=== PATIENT | male | born 1965 | race Caucasian/White ===

== ENCOUNTER 2017-10-22 10:10 | Outpatient (CLI) | payer BC | END 2017-10-22 10:11 | disposition home or self-care (01) | LOC: BICRAD 10:10 | PROVIDERS: ATTEND Family Medicine | DX: Z00.00 Encounter for general adult medical examination without abnormal findings (principal) | CPT/HCPCS: 71046 ==

== ENCOUNTER 2019-09-02 20:30 | Outpatient (CLI) | payer BC | END 2019-09-02 20:31 | disposition home or self-care (01) | LOC: SLEEPLAB 20:30 | PROVIDERS: ATTEND Internal Medicine Pulmonary Disease | DX: G47.33 Obstructive sleep apnea (adult) (pediatric) (principal); R53.83 Other fatigue; R40.0 Somnolence; R06.83 Snoring; E66.9 Obesity, unspecified; Z68.38 Body mass index [BMI] 38.0-38.9, adult | CPT/HCPCS: 95811 ==

== ENCOUNTER 2025-02-03 08:41 | Outpatient (CLI) | payer BC | END 2025-02-03 08:42 | disposition home or self-care (01) | LOC: SCSRAD 08:41 | PROVIDERS: ATTEND Family Medicine | DX: Z77.128 Contact with and (suspected) exposure to other hazards in the physical environment (principal) | CPT/HCPCS: 71046 ==